=== PATIENT | male | born 1990 | race Hispanic/Latino ===

== ENCOUNTER 2017-08-11 18:25 | Emergency (ER) | payer OTHER ==
[2017-08-11 18:35] VITALS: BMI 30.9
[2017-08-11 18:36] VITALS: TEMP 98.1
--- NOTE | 2017-08-11 20:15 | ED PDOC ---
HPI: Abdomen Chief Complaint (Provider): abdominal pain History Per: Patient History/Exam Limitations: no limitations Onset/Duration Of Symptoms: Days (5) Outside of [place] travel?: No Current Symptoms Are (Timing): Still Present Severity: Mild Pain Scale Rating Of: 2 Location Of Pain/Discomfort: LLQ, Suprapubic, Other (radiating towards left inguinal area) Quality Of Discomfort: Sharp Associated Symptoms: denies: Fever, Chills, Nausea, Vomiting, Diarrhea, Loss Of Appetite, Back Pain, Constipation, Urinary Symptoms Exacerbating Factors: None Alleviating Factors: None Last Bowel Movement: Today (normal/soft) <Alka Ocampo - Last Filed: 08/11/17 23:08> <Teena Treadwell - Last Filed: 08/11/17 23:17> Time Seen by Provider: 08/11/17 18:57 Chief Complaint (Nursing): Abdominal Pain Additional Complaint(s): 27 yr old M presents to ED with complaint of LLQ abdominal pain radiating towards left inguinal area x 5 days. Denies PMHx. Denies dysuria, hematuria, penile discharge, testicular pain, any protrusion of abdomen/pelvic or inguinal area. Denies nausea, vomiting, fever. Pain is 2/10, sharp, intermittent, resolves on it own, nothing exacerbates the pain, nothing alleviates the pain. He saw his PMD at [place] this AM and was sent for an abdominal US which resulted normal. Patient is tolerating PO fluids and solids, has been able to engage in moderate intensity exercise without exacerbation of symptoms. PMD: [place] -is sexually active, denies hx STD PMHx: denies SurgHx: denies Medications: ibuprofen 200mg PO once yesterday Allergies: clarithromycin (Alka Ocampo) Past Medical History - Medical History PMH: No Chronic Diseases - Surgical History Surgical History: No Surg Hx - Family History Family History: States: No Known Family Hx - Living Arrangements Living Arrangements: With Family - Social History Current smoker - smoking cessation education provided: No Ex-Smoker (has not smoked in the last 12 months): No Alcohol: None Drugs: Denies <Alka Ocampo - Last Filed: 08/11/17 23:08> <Teena Treadwell - Last Filed: 08/11/17 23:17> Vital Signs: Last Vital Signs Temp 98.1 F 08/11/17 18:36 Pulse 70 08/11/17 23:15 Resp 18 08/11/17 23:15 BP 148/91 H 08/11/17 23:15 Pulse Ox 98 08/11/17 23:15 - Home Medications Home Medications: Ambulatory Orders Medication Instructions Recorded Naproxen 500 mg PO BID PRN #14 tab 08/11/17 - Allergies Allergies/Adverse Reactions: Allergies Allergy/AdvReac Type Severity Reaction Status Date / Time clarithromycin [From Biaxin] AdvReac ANAPHYLAXIS Verified 08/11/17 19:35 Review of Systems Constitutional: Negative for: Fever, Chills, Sweats, Weakness Eyes: Negative for: Vision Change ENT: Negative for: Nose Discharge, Nose Congestion, Throat Pain Cardiovascular: Negative for: Chest Pain, Palpitations, Light Headedness Respiratory: Negative for: Cough, Shortness of Breath, Wheezing Gastrointestinal: Positive for: Abdominal Pain. Negative for: Nausea, Vomiting , Diarrhea, Constipation Genitourinary Male: Negative for: Dysuria, Frequency, Penile Discharge, Scrotal Pain, Penile Pain Musculoskeletal: Negative for: Neck Pain, Shoulder Pain, Arm Pain Skin: Negative for: Rash, Lesions Neurological: Negative for: Weakness, Headache <Alka Ocampo - Last Filed: 08/11/17 23:08> Physical Exam - Physical Exam Appears: Positive for: No Acute Distress Head Exam: Positive for: ATRAUMATIC, NORMOCEPHALIC Skin: Positive for: Normal Color, Warm, Dry Eye Exam: Positive for: EOMI, PERRL ENT: Negative for: Pharyngeal Erythema, Tonsillar Exudate Neck: Positive for: Painless ROM, Supple Cardiovascular/Chest: Positive for: Regular Rate, Rhythm. Negative for: Gallop , Murmur Respiratory: Positive for: Normal Breath Sounds. Negative for: Rales, Rhonchi Pulses-Carotid (L): 2+ Pulses-Carotid (R): 2+ Pulses-Radial (L): 2+ Pulses-Radial (R): 2+ Gastrointestinal/Abdominal: Positive for: Bowel Sounds (hyperactive), Soft, Tenderness (LLQ and suprapubic area). Negative for: Mass, Distended, Guarding, Rebound Back: Positive for: Normal Inspection. Negative for: L CVA Tenderness, R CVA Tenderness Extremity: Positive for: Normal ROM Lymphatic: Negative for: Adenopathy Neurologic/Psych: Positive for: Alert, drawer in dobby loom II-XII (grossly intact), Oriented, Mood/Affect (normal/full), Gait (normal). Negative for: Motor/Sensory Deficits <Alka Ocampo - Last Filed: 08/11/17 23:08> - Laboratory Results Result Diagrams: 08/11/17 20:32 08/11/17 20:32 - ECG O2 Sat by Pulse Oximetry: 99 <Alka Ocampo - Last Filed: 08/11/17 23:08> - Laboratory Results Result Diagrams: 08/11/17 20:32 08/11/17 20:32 <Teena Treadwell - Last Filed: 08/11/17 23:17> - Progress ED Course And Treament: -CBC w/ diff: normal -BMP: normal -Udip: negative -Toradol 15mg IV once -Abd/pelvic CT w/o IV or PO contrast: mildly distended small bowel loops in LUQ , minimal diverticulosis, no acute or solid visceral abnormalities, no evidence of appendicits or diverticulitis -Patients pain improved, remained stable, vitals within normal limits. (Alka Ocampo) Disposition - Patient ED Disposition Is Patient to be Admitted: No Counseled Patient/Family Regarding: Studies Performed, Need For Followup - Disposition Disposition: Routine/Home Disposition Time: 22:41 <Alka Ocampo - Last Filed: 08/11/17 23:08> <Teena Treadwell - Last Filed: 08/11/17 23:17> - Clinical Impression Clinical Impression: Abdominal pain - Disposition Referrals: [facility] [Provider Group] Condition: STABLE Additional Instructions: -Follow up with your PMD within 2-3 days -Take Naproxen PRN pain -as prescribed -ER precautions reviewed, return to ED if worsening symptoms, or concerns Prescriptions: Naproxen 500 mg PO BID PRN #14 tab PRN Reason: Pain, Moderate (4-7) Instructions: Acute Abdomen (Belly Pain), Adult (DC) Forms: [employer] (Telugu)
[2017-08-11 20:37] LABS: BASO % 0.5 % (0.0-2.0); EOS # 0.1 K/uL (0.0-0.7); EOS % 1.2 % (0.0-4.0); HEMOGLOBIN 14.7 g/dL (12.0-18.0); LYMPH # 2.2 K/uL (1.0-4.3); LYMPH % 22.3 % (20.0-40.0); MEAN CELL VOLUME 87.9 fl (80.0-94.0); MEAN CORPUSCULAR HEMOGLOBIN 30.1 pg (27.0-31.0); MEAN CORPUSCULAR HGB CONC 34.2 g/dL (33.0-37.0); MEAN PLATELET VOLUME 10.8 fl (7.2-11.7); MONO # 0.8 K/uL (0.0-0.8); MONO % 8.3 % (0.0-10.0); NEUT # 6.7 K/uL (1.8-7.0); NEUT % 67.7 % (50.0-75.0); NRBC % 0.1 % (0.0-0.0); RBC 4.89 Mil/uL (4.40-5.90); RED CELL DISTRIBUTION WIDTH 13.5 % (11.5-14.5); WHITE BLOOD COUNT 9.9 K/uL (4.8-10.8)
[2017-08-11 20:50] LABS: BLOOD UREA NITROGEN 16 mg/dl (9-20); CALCIUM 9.8 mg/dL (8.4-10.2); GFR AFRICAN-AMERICAN > 60; GFR NON-AFRICAN AMERICAN > 60
--- NOTE | 2017-08-11 21:49 | CT ---
EXAM: CT Abdomen and Pelvis Without Intravenous Contrast EXAM DATE/TIME: 08/11/2017 8:06 PM CLINICAL HISTORY: 27 years old, male; Pain; Abdominal pain; Localized; Left lower quadrant (llq); Additional info: Llq pain radiating towards left inguinal area TECHNIQUE: Axial computed tomography images of the abdomen and pelvis without intravenous contrast. All CT scans at this facility use one or more dose reduction techniques, viz.: automated exposure control; ma/kV adjustment per patient size (including targeted exams where dose is matched to indication; i.e. head); or iterative reconstruction technique. Coronal and sagittal reformatted images were created and reviewed. COMPARISON: There are no prior studies for comparison. FINDINGS: Lung bases: See below. Heart: Heart size is normal. Lung bases are clear ABDOMEN: Liver: unremarkable Gallbladder and bile ducts: unremarkable Pancreas: unremarkable Spleen: unremarkable Adrenals: unremarkable Kidneys and ureters: unremarkable Stomach and bowel: Stomach is partially distended. Rotation is normal. There are mildly distended small bowel loops in the left upper quadrant. There is no small bowel obstruction. Ileocecal region is unremarkable. There is minimal diverticulosis. PELVIS: Appendix: See stomach and bowel Bladder: unremarkable Reproductive: Seminal vesicles and prostate are unremarkable. ABDOMEN and PELVIS: Intraperitoneal space: There is no free air or free fluid. Bones/joints: There are no acute osseous abnormalities. Soft tissues: unremarkable Vasculature: Vascular structures are unremarkable. Lymph nodes: There is no pathologic adenopathy. IMPRESSION: No acute solid visceral or bowel abnormality, no CT findings of appendicitis or diverticulitis
[2017-08-11 23:16] VITALS: BP 148/91; PULSE 70; RESP 18; O2SAT 98
== END 2017-08-11 23:26 | disposition home or self-care (01) ==
LOC: H.ER 18:25
DX: R10.32 Left lower quadrant pain (principal)
CPT/HCPCS: 74176; 80048; 85025; 96374; 99283; J1885